=== PATIENT | male | born 1985 | race Caucasian/White ===

== ENCOUNTER 2020-10-13 12:02 | Outpatient (REF) | payer OTHER, SELFPAY ==
[2020-10-13 14:16] LABS: Alanine Aminotransferase 75 U/L (0-40); Anion Gap 14 (12-20); Aspartate Amino Transferase 33 U/L (5-37); Blood Urea Nitrogen 19 mg/dL (9-16); Calcium 9.3 mg/dL (8.4-10.2); Carbon Dioxide 25 mmol/L (22-29); Chloride 106 mmol/L (96-108); Cholesterol 154 mg/dL; Estimated Glomerular Filt Rate > 60; Glucose Fasting 96 mg/dL (60-99); HDL Cholesterol 46 mg/dL; LDL Cholesterol Calculated 98 mg/dl; Potassium 4.2 mmol/L (3.3-5.1); Sodium 141 mmol/L (135-145); Triglycerides 50 mg/dL
[2020-10-13 14:28] LABS: Free T4 (Free Thyroxine) 0.91 ng/dL (0.71-1.85); Thyroid Stimulating Hormone 2.64 uIU/mL (0.32-4.0)
[2020-10-14 17:17] LABS: Thyroid Peroxidase Antibodies 1 IU/mL (<9)
== END 2020-10-13 12:03 | disposition home or self-care (01) ==
LOC: HO.HMGCLDS 12:02
PROVIDERS: PCP Internal Medicine; Visit Provider Internal Medicine
DX: Z00.01 Encounter for general adult medical examination with abnormal findings (principal); Z83.49 Family history of other endocrine, nutritional and metabolic diseases
CPT/HCPCS: 36415; 80048; 80061; 84439; 84443; 84450; 84460; 86376

== ENCOUNTER 2021-11-13 12:59 | Outpatient (REF) | payer BC, SELFPAY ==
--- NOTE | ~2021-11-13 | XR_ITS ---
EXAMINATION: XR CERVICAL SPINE CLINICAL INFORMATION: Neck pain. COMPARISON: None TECHNIQUE: 6 views of the cervical spine, inclusive of flexion and extension views, were obtained. FINDINGS: There is mild straightening of the cervical lordosis. The vertebral heights, alignment and disc heights are normal. The craniovertebral junction and the C1-C2 alignment is normal. No visible acute fracture, dislocation or subluxation seen. On flexion-extension views there is no subluxation seen. The prevertebral and paravertebral soft tissues are normal. XR/XR cervical spine w flex/ext IMPRESSION: Unremarkable cervical spine exam.
[2021-11-13 15:39] LABS: Cholesterol 151 mg/dL; HDL Cholesterol 42 mg/dL; LDL Cholesterol Calculated 99 mg/dl; Triglycerides 51 mg/dL
[2021-11-13 16:01] LABS: TSH reflex Free T4 1.08 uIU/mL (0.32-4.0)
== END 2021-11-13 13:00 | disposition home or self-care (01) ==
LOC: HO.HMGCX 12:59
PROVIDERS: PCP Internal Medicine; Visit Provider Internal Medicine
DX: Z00.01 Encounter for general adult medical examination with abnormal findings (principal); M54.2 Cervicalgia; G89.29 Other chronic pain; Z83.49 Family history of other endocrine, nutritional and metabolic diseases
CPT/HCPCS: 36415; 72052; 80061; 84443

== ENCOUNTER 2024-12-10 07:37 | Outpatient (AMB) | payer OTHER, SELFPAY ==
--- OUTSIDE RECORDS SUMMARY | 2024-12-10 07:38 | XMS_ITS | Patient Health Record ---
Author Organization [facility] Address [address] [place] [address] Care Team Providers Care Corporate Executive Chef Name Role Phone Jason Herrera M.D. Primary Care Provider Lilliam Foreman Jr Reynold Unavailable [phone] Reason For Referral No Information Medications Medication SIG (Take, Route, Frequency, Duration) Notes Start Date End Date Status Colyte with Flavor Packs 240 GM As directed Orally Over the specified time. for 1 day(s) 07/30/2016 Active Pantoprazole Sodium 40 MG 1 tablet Orall y Once a day for 30 day(s) 07/30/2016 Active Problems Problem Type SNOMED Code ICD Code Onset Dates Problem Status W/U Status Risk Notes Problem 34039621 Rectal bleeding (K62.5) Active confirmed Problem 07702359 Epigastric pain (R10.13) Active confirmed Problem 525142424 Gastroesophageal reflux disease, esophagitis presence not specified (K21.9) Active confirmed Plan Of Treatment Future Test Test Name Order Date UPPER GI ENDOSCOPY 07/30/2016 COLONOSCOPY 07/30/2016 Insurance Providers Payer Name Payer Address Payer Phone Subscriber Number Group Number Insured Name Patient Relationship to Insured Coverage Start Date [facility]age End Date [facility] [address] [address] [place], [place] [id number] SARAH BERGER Self - patient is the insured Medical (General) History Medical History History ICD Code Denies NC,DM,CVA,Lung disease,renal dise ase Surgical History Surgery Date(Month/Year) jaw surgery
--- OUTSIDE RECORDS SUMMARY | 2024-12-10 07:38 | XMS_ITS | Encounter Summary ---
Author Organization [facility] Address [address] [place] [id number] Phone Care Team Providers Care Windshield Repair Technician Name Role Phone Pepito Yan MD Primary Care Provider Ruth phan Encounter Details Date Type Department Care Team (Late st Contact Info) Description 12/07/2011 Documentation [facility] [place] Family Medicine [address] [place] [address] Family Medicine, Physician [address] [place] [address] Social History Tobacco Use Types Packs/Day Years Used Date Smoking Tobacco: Never Assessed Sex and Gender Information Value Date Recorded Sex Assigned at Not on file Legal Sex Male 3:33 PM EDT Gender Identity Not on file Sexual Orientation Not on file documented as of this encounter Plan of Treatment Not on file documented as of this encounter Visit Diagnoses Not on filedocumented in this encounter Care Teams Windshield Repair Technician Relationship Specialty Start Date End Date Pepito Yan MD PCP - General 01/07/17 11/28/22 documented as of this encounter
--- NOTE | 2024-12-10 07:40 | MHC.OFFWIV ---
Intake Vital Signs 12/10/24 07:41 Height 6 ft Weight 205 lb BMI 27.8 BP 106/64 Blood Pressure Location Rt brachial Position Sitting Pulse 75 Pulse Source Pulse Oximeter Temp 98.1 F Temp Source Oral Pulse Oximetry (%) 98 Oxygen Delivery Method Room Air Intake Visit Reasons: EP-whole body swollen from poison sharon Intake Note: presents with poison monica body rash head to toe, eye swelling Patient Tobacco Use Status: Former Tobacco user Allergies No Known Allergies Allergy (Verified 12/10/24 07:43) Do you need a note to return to daycare/school/sports/work: Yes Return to daycare/school/sports/work/other note: work HPI HPI Comments History of Present Illness Details History - The patient is a 39-year-old male presenting with a rash suspected to be poison sharon dermatitis and associated facial swelling. - The rash began approximately three and a half weeks ago after exposure to a plant at the patient's new house. - The rash is widespread, affecting the arms, legs, chest, and face. - The patient has been using calamine lotion and a poison sharon wash, which provided some relief but did not resolve the rash. - Facial swelling developed recently, prompting the visit. - The patient has no prior history of taking prednisone. - There is a history of psoriasis, which had a significant flare-up a few years ago. Physical Exam Physical Exam General: Cooperative, healthy appearing, comfortable, no acute distress and well developed Orientation: Patient oriented x3 Limitations: No limitations Head: Normal to inspection Ears: Hearing grossly normal bilaterally Nose: Normal External nose present Face and sinus: Swelling present on the face Eyes: bilateral edema noted periorbital L>R Neck: Normal visual inspection and Yes full ROM Respiratory: Normal respiratory effort and able to speak in complete sentences. Skin: erythematous raised linear in some spots, scabbed in others on bilateral UE, bilateral LE, chest, face and back. Neuro: Patient oriented x3 ON LICENSE OF [facility] Medical History History of COVID-19 Surgical History Hx of colonoscopy Family History (Updated 11/13/21 @ 12:27 by Rivka Cordova CMA) Father Thyroid disorder Mother Thyroid disorder Social History Housing: House Alcohol intake: former Patient Tobacco Use Status: Former Tobacco user e-Cigarette/Vaping Use: Never Used Second Hand Smoke Exposure: No Substance Use Type: Marijuana service: No Current occupational status: employed Current occupation: [employer] Current occupational exposures/hazards: Yes Cognitive needs: No Hearing needs: No Vision needs: No Review of Systems Const All systems reviewed & are unremarkable except as noted in HPI and below Physical Exam Vital Signs: Last Vital Signs Temp 98.1 F 12/10/24 07:41 Pulse 75 12/10/24 07:41 BP 106/64 12/10/24 07:41 Pulse Ox 98 12/10/24 07:41 Oxygen Delivery Method Room Air 12/10/24 07:41 BMI result Body Mass Index 27.8 Assessment & Plan Assessment & Plan (1) Contact dermatitis: Code(s): L25.9 - Unspecified contact dermatitis, unspecified cause Qualifiers: Contact dermatitis type: allergic Contact dermatitis trigger: non-food plants Qualified Code(s): L23.7 - Allergic contact dermatitis due to plants, except food Plan: Patient was informed and verbally consented to the use of an ambient scribe for clinic note documentation during this visit. 1. Poison Sharon Dermatitis - Initiate a 12-day tapering course of prednisone starting at 40 mg for three days, followed by 30 mg for three days, and 20 mg for three days. - Advise the patient to take prednisone in the morning to avoid insomnia. - Recommend continued use of poison sharon wash, avoiding use on the face. - Suggest taking Benadryl for symptomatic relief of itching, with caution regarding drowsiness. - Monitor for any worsening of symptoms or new symptoms. Medications: New prednisone see taper instructions; 40 mg Daily x3 days, 30 mg daily x3 days, 20 mg daily x3 days, 10 mg daily x3 days 10 mg PO DIRECTED 30 tabs 0RF Coding Level of Care Code Est Pt Level 3 (63833) Diagnoses Allergic contact dermatitis due to plants, except food L23.7 Contact dermatitis type: allergic Contact dermatitis trigger: non-food plants
[2024-12-10 07:41] VITALS: BP 106/64; PULSE 75; TEMP 36.7; O2SAT 98; BMI 27.8
== END 2024-12-10 08:15 | disposition home or self-care (01) ==
PROVIDERS: PCP Internal Medicine; Visit Provider Physician Assistant
DX: L23.7 Allergic contact dermatitis due to plants, except food (principal)